=== PATIENT | male | born 1955 | race Caucasian/White ===

== ENCOUNTER 2019-01-13 10:16 | Outpatient (CLI) | payer BC ==
--- NOTE | 2019-01-13 11:09 | RAD ---
RADIOGRAPH LUMBAR SPINE 2 VIEWS: DATE: 01/13/19 HISTORY: 63-year-old male with acute traumatic low back pain after fall several days ago. COMPARISON: None. FINDINGS: There are five lumbar-type vertebrae, but L5 is transitional, with left dysplastic L5 transverse proc ess that appears to pseudoarticulate with the S1 ala. Moderate disc space narrowing with moderate end plate marginal osteophytes at L3-4, L4-5, and L5-S1. No major spondylolisthesis. Vertebral body heig hts are maintained. Mild lateral curvature. High grade facet DJD on the right side at L4-5. IMPRESSION: 1. No acute compression fracture. 2. Lumbar spondylosis. 3. Lumbosacral transitional vertebra Castellvi's classification type IIa. JN [] POS: [facility]
--- NOTE | 2019-01-13 11:16 | RAD ---
EXAM: 3 views of the thoracic spine HISTORY: Follow the course with back pain COMPARISON: None FINDINGS: 3 views of the thoracic spine shows normal height and alignment of the vertebral bodies and intervertebral discs without fracture or subluxation. Mild lower thoracic degenerative changes are seen. IMPRESSION: No evidence of acute thoracic spine abnormality.
== END 2019-01-13 10:17 | disposition home or self-care (01) ==
LOC: SCSRAD 10:16
PROVIDERS: ATTEND Nurse Practitioner Family
DX: M54.6 Pain in thoracic spine (principal); M47.816 Spondylosis without myelopathy or radiculopathy, lumbar region
CPT/HCPCS: 72072; 72100

== ENCOUNTER 2019-11-15 09:26 | Inpatient (IN) | payer BC, OTHER ==
[2019-11-15] MEDS ORDERED: Dexamethasone 10 MG/ML VIAL ONE (09:44)
[2019-11-15] MEDS ORDERED: Iopamidol-370 76% 500 ML 1 ML ONE (09:52)
[2019-11-15 10:05] LABS: #Lymphocytes 0.8 thou/uL (1.20-3.40); #Monocytes 0.4 thou/uL (0.11-0.59); #Neutrophils 4.5 thou/uL (1.40-6.50); %Basophils 0.1 % (0.0-1.0); %Eosinophils 0.5 % (0.0-10.0); %Lymphocytes 13.2 % (21.0-51.0); %Monocytes 7.3 % (0.0-10.0); Hemoglobin 14.1 g/dL (14.0-18.0); Mean Corpuscular HGB CONC 33.1 g/dL (32.0-36.0); Mean Corpuscular Hemoglobin 30.6 pg (27.0-31.0); Mean Corpuscular Volume 92.5 fL (78.0-98.0); Mean Platelet Volume 7.2 fL (7.4-10.4); Platelet Count 213 thou/uL (130-400); RBC Distribution Width 11.4 % (11.5-14.5); Red Blood Cell (RBC) Count 4.59 mill/uL (4.70-6.10); White Blood Cell (WBC) Count 5.7 thou/uL (4.8-10.8)
--- NOTE | 2019-11-15 10:31 | RAD ---
PORTABLE CHEST 1 VIEW: Date: 11/15/2019 Time: 0926 hours HISTORY: Weakness. Chest pain. Positive for COVID. FINDINGS/IMPRESSION: There are no previous exams for comparison. The heart size is borderline. Mild patchy infiltrates are seen in the lower lung burger. No lobar con solidation, pneumothoraces, or large effusions are noted. There are degenerative changes in the spine . POS: [facility]
[2019-11-15 10:33] LABS: ALT (SGPT) 32 U/L (8-55); AST (SGOT) 35 U/L (5-34); Albumin 4.1 g/dL (3.4-4.8); Alkaline Phosphatase 69 U/L (40-110); Anion Gap 18 mmol/L (10-20); BUN (Urea Nitrogen) 18 mg/dL (8.4-25.7); Bilirubin, Total 0.6 mg/dL (0.2-1.2); CK (CPK) 110 U/L (30-200); Calc. Creatinine Clearance 0 mL/min (70-130); Calcium 8.6 mg/dL (7.8-10.44); Carbon Dioxide 20 mmol/L (23-31); Chloride 101 mmol/L (98-107); Estimated GFR-MDRD Greater than 90; Globulin 2.4 g/dL (2.4-3.5); Glucose 106 mg/dL (80-115); Lipase 52 U/L (8-78); Protein, Total 6.5 g/dL (5.8-8.1); Sodium 135 mmol/L (136-145)
[2019-11-15 13:16] LABS: Troponin I Less than 0.010 ng/mL (< 0.028)
--- NOTE | 2019-11-15 13:37 | CT ---
CT ANGIOGRAM THORAX WITH IV CONTRAST AND 3-D RECONSTRUCTIONS CLINICAL INDICATION: Covid positive. Elevated d-dimer. COMPARISON: None FINDINGS: Pulmonary arteries: No filling defects are seen in the central or segmental pulmonary arteries to sug gest a pulmonary embolus. Aorta: Normal in caliber without evidence of an aortic dissection. Lungs: There are scattered peripherally located groundglass densities seen within the upper and lower lobes as well as the right middle lobe with interstitial and patchy parenchymal densities at each lung base. No pleural effusion is seen. Mediastinum: There is a mildly prominent precarinal lymph node present measuring 9 mm in short axis d imension. Calcified subcarinal lymph nodes are identified. Mildly prominent right hilar lymph nodes are seen. These lymph nodes are likely reactive in origin. Thyroid gland: Limited imaged thyroid gland has a normal CT appearance Osseous structures: There are prominent endplate degenerative changes at the C5-6 level. There is rig ht glenohumeral osteoarthropathy. Chest wall: No abnormality visualized. Upper abdomen: Gallbladder is incompletely imaged but does appear mildly distended. Remainder of the visualized upper abdomen demonstrates a normal CT appearance for arterial phase of imaging. IMPRESSION: 1. Scattered groundglass opacities as well as interstitial and patchy parenchymal densities at each l donnell base. These findings can be seen with viral pneumonitis such as Covid 19. 2. Probable reactive mediastinal and right hilar lymphadenopathy. 3. No CT evidence of a pulmonary embolus involving the central or segmental pulmonary arteries. 4. Incomplete imaging of the gallbladder, but the gallbladder is mildly distended.
[2019-11-15] MEDS ORDERED: cefTRIAXone\\ROCEPHIN 2 GM VIAL ONE (14:01)
[2019-11-15] MEDS ORDERED: Aspirin Chewable 81 MG TAB ONE (14:01)
[2019-11-15] MEDS ORDERED: Azithromycin 500 MG VIAL ONE (14:01)
[2019-11-15] MEDS ORDERED: Enoxaparin Sodium 100 MG/ML SYRINGE ONE (14:06)
[2019-11-15] MEDS ORDERED: Piperacillin/Tazobactam 4.5 GM VIAL ONE (16:18)
[2019-11-15] MEDS ORDERED: Ondansetron ODT 4 MG TAB SL PRN (17:33)
[2019-11-15] MEDS ORDERED: Ondansetron PF 4 MG/2 ML Vial IVP PRN (17:33)
[2019-11-15] MEDS ORDERED: hydrALAZINE 20 MG/ML VIAL SLOW IVP PRN (17:36)
[2019-11-15 19:23] VITALS: BMI 25.9
[2019-11-15] MEDS: Famotidine 20 MG TAB PO SCH (20:28)
--- NOTE | 2019-11-15 20:28 | HP ---
PRIMARY CARE PHYSICIAN: Brett Morales MD CHIEF COMPLAINT: Cough and shortness of breath. HISTORY OF PRESENT ILLNESS: Mr. Barrios is a very pleasant 64-year-old gentleman, who has a history of hypertension and hyperlipidemia. He was in his usual state of health until he says before last when he started having symptoms of scratchy throat and some nasal congestion and a cough off and on. He says that the symptoms are kind of off and on and he really did not think much of it. Then, on last Friday, the symptoms seem to get worse. He was having some chills and started to feel tired and short of breath when he would walk or do anything. For this reason, he went ahead and got tested at his primary care physician's office for COVID-19. He said he got a call back a few days later, around and was told he was positive. He said he was basically having similar symptoms off and on. At times, he thought it had actually gone away, but then the symptoms would come back and he became more short of breath and having increased cough and for this reason he came to the ER for evaluation. In the ER, he was found to be slightly hypoxic with an O2 saturation around 91% on room air and it went up to 98% with supplemental oxygen and he is being admitted for further evaluation. The patient also admits to a little bit of diarrhea, but otherwise no other complaints such as chest pain. No leg pain or leg swelling and he does say that he takes Enbrel for osteoarthritis, but due to these symptoms he missed his last injection which would have been this week. REVIEW OF SYSTEMS: All systems were reviewed and are negative except for that mentioned in the history of present illness. PAST MEDICAL HISTORY: Significant for hypertension and hyperlipidemia as well as arthritis. PAST SURGICAL HISTORY: No history of any surgeries. ALLERGIES: NO KNOWN DRUG ALLERGIES. SOCIAL HISTORY: He is a nonsmoker and nondrinker. He is . He has one child of his own and 3 other step children and his is his surrogate decision maker and he is a full code. FAMILY HISTORY: No history of any known heritable diseases. CURRENT MEDICATIONS: He is on a blood pressure medicine as well as cholesterol medicine and then the Enbrel, but he does not know the names. PHYSICAL EXAMINATION: GENERAL: He is alert and oriented. He appears to be in no acute distress. He is well developed and well nourished. VITAL SIGNS: Blood pressure was 145/75, heart rate 76, respiratory rate of 20, and temperature was 98.5. HEENT: Pupils are equal, round, and reactive. Extraocular muscles are intact. His sclerae are anicteric. NECK: There is no adenopathy. No bruits. LUNGS: He has bilateral rales, but no wheezing and these are fine crackles. CARDIOVASCULAR: He has a normal S1 and S2. There is no S3 or S4. No murmurs, clicks, or rubs. ABDOMEN: Soft, nontender, and nondistended. Positive for bowel sounds. No rebound. No guarding. No organomegaly. EXTREMITIES: There is no clubbing or cyanosis. No edema. No calf tenderness. No joint effusions. NEUROLOGIC: Exam is grossly nonfocal. SKIN AND INTEGUMENT: No skin changes. No rash. LABORATORY DATA: White blood cell count is 5.7, hemoglobin 14.1, hematocrit is 42.5, and platelet count is 213. D-dimer was 0.63. Sodium 135, potassium 4.0, chloride is 101, CO2 is 20, BUN of 18, creatinine 0.77, and glucose is 105. Troponin is less than 0.010. He had a CT angiogram of the chest, which was negative for PE, but did show some bilateral ground-glass opacities. ASSESSMENT: This is a pleasant 64-year-old gentleman, who is being admitted for pneumonia due to COVID-19 infection. He also has some degree of hypoxia. Therefore, he has an acute respiratory failure with hypoxemia due to COVID-19 pneumonia. He will be admitted and started on IV Decadron. We will place him on Rocephin and azithromycin to help prevent superimposed infection and also trend his inflammatory markers and consider full-dose anticoagulation given the thrombotic nature of this illness. He is beyond 10 days out of his illness and therefore is not considered a remdesivir candidate by our protocol. 1. Hypertension. We will need to reconcile and restart his blood pressure medications. We will also have p.r.n. medicines available. 2. He will also be placed on gastrointestinal prophylaxis. Job ID: [id number]
[2019-11-15] MEDS: Acetaminophen 325 MG TAB PO PRN (20:36)
[2019-11-15] MEDS ORDERED: Dexamethasone 4 mg/ml Vial SLOW IVP SCH (21:00)
[2019-11-15] MEDS ORDERED: Enoxaparin Sodium 80 MG/0.8 ML SYRINGE SC SCH (23:30)
[2019-11-16 04:54] LABS: #Lymphocytes 0.7 thou/uL (1.20-3.40); #Monocytes 0.3 thou/uL (0.11-0.59); #Neutrophils 5.1 thou/uL (1.40-6.50); %Lymphocytes 10.9 % (21.0-51.0); %Neutrophils 84.1 % (42.0-75.0); Hemoglobin 13.4 g/dL (14.0-18.0); Mean Corpuscular HGB CONC 34.6 g/dL (32.0-36.0); Mean Corpuscular Hemoglobin 31.9 pg (27.0-31.0); Mean Corpuscular Volume 92.3 fL (78.0-98.0); Mean Platelet Volume 7.4 fL (7.4-10.4); Platelet Count 249 thou/uL (130-400); RBC Distribution Width 11.1 % (11.5-14.5); Red Blood Cell (RBC) Count 4.21 mill/uL (4.70-6.10); White Blood Cell (WBC) Count 6.1 thou/uL (4.8-10.8)
[2019-11-16 05:10] LABS: Anion Gap 14 mmol/L (10-20); BUN (Urea Nitrogen) 18 mg/dL (8.4-25.7); CRP (Inflammatory) 5.33 mg/dL (= or < 0.5); Calc. Creatinine Clearance 121 mL/min (70-130); Calcium 8.7 mg/dL (7.8-10.44); Carbon Dioxide 24 mmol/L (23-31); Chloride 102 mmol/L (98-107); Estimated GFR-MDRD Greater than 90; Glucose 163 mg/dL (80-115); Sodium 136 mmol/L (136-145)
[2019-11-16] MEDS: Acetaminophen 325 MG TAB PO PRN ×2 (06:30→12:09)
[2019-11-16] MEDS: Dexamethasone 6 MG in Sodium Chloride 0.9% 50 ML IVPB SCH (09:06)
[2019-11-16] MEDS: Ascorbic Acid 500 mg Chewable Tablet PO SCH (09:06)
[2019-11-16] MEDS: Enoxaparin Sodium 80 MG/0.8 ML SYRINGE SC SCH ×2 (09:06→20:11)
[2019-11-16] MEDS: Famotidine 20 MG TAB PO SCH ×2 (09:07→20:11)
[2019-11-16] MEDS: Folic Acid/Vit B Comp W-C PO SCH (09:07)
[2019-11-16 09:37] LABS: Hemoglobin 13.7 g/dL (14.0-18.0); Platelet Count 266 thou/uL (130-400)
[2019-11-16 09:54] LABS: Calc. Creatinine Clearance 122 mL/min (70-130); Estimated GFR-MDRD Greater than 90
[2019-11-16] MEDS ORDERED: Azithromycin 500 MG in Sodium Chloride 0.9% 250 ML 250 ML IVPB SCH (14:00)
[2019-11-16] MEDS: traMADol HCl 50 MG TAB PO PRN ×2 (14:16→20:10)
[2019-11-16] MEDS: cefTRIAXone\\ROCEPHIN 1 GM in Sodium Chloride 0.9% 100 ML IVPB SCH (14:16)
--- NOTE | 2019-11-16 16:28 | PDOC.HOSPP ---
- Subjective Encounter Date: 11/16/19 Encounter Time: 16:26 Subjective: Mr. Barrios was seen today in follow-up of COVID infection with respiratory failure. He says he feels better today. No new complaints. - Objective Vital Signs & Weight: Vital Signs (12 hours) Temp Pulse Resp BP Pulse Ox 11/16/19 15:16 99.0 F 79 18 135/71 94 L 11/16/19 12:12 98.8 F 74 20 145/75 H 91 L 11/16/19 09:05 98.9 F 75 20 139/60 92 L 11/16/19 08:20 92 L Weight Admit Weight 191 lb 8 oz Weight 191 lb 8 oz I&O: 11/15/19 11/16/19 11/17/19 06:59 06:59 06:59 Intake Total 350 Balance 350 Result Diagrams: 11/16/19 09:21 11/16/19 09:21 Hospitalist ROS - Medication Medications: Active Medications Generic Name Dose Route Start Last Admin Trade Name Freq PRN Reason Stop Dose Admin Acetaminophen 650 mg 11/15/19 17:36 11/16/19 12:09 Tylenol PO 650 mg Q4H PRN Administration Headache/Fever/Mild Pain (1-3) Ascorbic Acid 1,000 mg 11/16/19 09:00 11/16/19 09:06 Vitamin C PO 1,000 mg DAILY KATIE Administration Enoxaparin Sodium 80 mg 11/16/19 09:00 11/16/19 09:06 Lovenox SC 80 mg 0900,2100 KATIE Administration Famotidine 20 mg 11/15/19 21:00 11/16/19 09:07 Pepcid PO 20 mg BID KATIE Administration Ceftriaxone Sodium 1 gm/ 100 mls @ 200 mls/hr 11/16/19 15:00 11/16/19 14:16 Sodium Chloride IVPB 100 mls 1500 KATIE Administration Dexamethasone 6 mg/ Sodium 51.5 mls @ 100 mls/hr 11/16/19 09:00 11/16/19 09: 06 Chloride IVPB 51.5 mls DAILY KATIE Administration Tramadol HCl 50 mg 11/16/19 14:01 11/16/19 14:16 Ultram PO 50 mg Q6H PRN Administration Moderate to Severe Pain (6-10) Vitamin B Complex/Vit C/Folic Acid 1 tab 11/16/19 09:00 07/07/20 09:07 Nephro-China Tablet PO 1 tab DAILY KATIE Administration - Exam Eye: PERRL, anicteric sclera Heart: RRR, no murmur, no gallops, no rubs, normal peripheral pulses Respiratory: no wheezes, no ronchi, rales Gastrointestinal: soft, non-tender, non-distended, normal bowel sounds, no palpable masses Extremities: no cyanosis, no edema Hosp A/P (1) Acute respiratory failure due to COVID-19 Code(s): U07.1 - COVID-19; J96.00 - ACUTE RESPIRATORY FAILURE, UNSP W HYPOXIA OR HYPERCAPNIA Status: Acute (2) Hypertension Code(s): I10 - ESSENTIAL (PRIMARY) HYPERTENSION Status: Acute (3) Hyperlipidemia Code(s): E78.5 - HYPERLIPIDEMIA, UNSPECIFIED Status: Chronic - Plan * Acute respiratory failure due to COVID infection- he is not requiring any oxygen supplementation * Continue Decadron * Continue to trend inflammatory markers * Maybe home in a day or two if he remains stable * HTN- blood pressure is stable
[2019-11-16] MEDS ORDERED: Benzonatate 100 MG CAP PO PRN (18:39)
[2019-11-16] MEDS ORDERED: Loperamide HCl 2 MG CAP PO PRN (18:39)
[2019-11-17] MEDS: Acetaminophen 325 MG TAB PO PRN ×2 (00:52→12:48)
[2019-11-17] MEDS: Dexamethasone 6 MG in Sodium Chloride 0.9% 50 ML IVPB SCH (08:53)
[2019-11-17] MEDS: Folic Acid/Vit B Comp W-C PO SCH (08:54)
[2019-11-17] MEDS: Famotidine 20 MG TAB PO SCH (08:54)
[2019-11-17] MEDS: Ascorbic Acid 500 mg Chewable Tablet PO SCH (08:54)
[2019-11-17] MEDS: Enoxaparin Sodium 80 MG/0.8 ML SYRINGE SC SCH (08:54)
[2019-11-17] MEDS: traMADol HCl 50 MG TAB PO PRN (08:55)
[2019-11-17] MEDS ORDERED: Azithromycin 500 MG in Sodium Chloride 0.9% 250 ML 250 ML IVPB SCH (09:00)
[2019-11-17] MEDS: Benzonatate 100 MG CAP PO PRN ×2 (09:21→15:01)
[2019-11-17] MEDS: cefTRIAXone\\ROCEPHIN 1 GM in Sodium Chloride 0.9% 100 ML IVPB SCH (14:57)
--- NOTE | 2019-11-17 16:26 | PDOC.HOSPP ---
- Subjective Encounter Date: 11/17/19 Encounter Time: 16:24 Subjective: Mr. Barrios was seen today in follow-up of COVID infection. He says he feels fine. No complaints. - Objective Vital Signs & Weight: Vital Signs (12 hours) Temp Pulse Resp BP Pulse Ox 11/17/19 15:19 98.1 F 11/17/19 13:00 99.1 F 79 20 132/75 11/17/19 09:07 99.0 F 69 18 117/73 94 L 11/17/19 05:00 98.6 F 62 20 119/63 94 L Weight Admit Weight 191 lb 8 oz Weight 191 lb 8 oz I&O: 11/16/19 11/17/19 11/18/19 06:59 06:59 06:59 Intake Total 350 1310 Balance 350 1310 Result Diagrams: 11/16/19 09:21 11/16/19 09:21 Hospitalist ROS - Medication Medications: Active Medications Generic Name Dose Route Start Last Admin Trade Name Freq PRN Reason Stop Dose Admin Acetaminophen 650 mg 11/15/19 17:36 11/17/19 12:48 Tylenol PO 650 mg Q4H PRN Administration Headache/Fever/Mild Pain (1-3) Ascorbic Acid 1,000 mg 11/16/19 09:00 11/17/19 08:54 Vitamin C PO 1,000 mg DAILY KATIE Administration Benzonatate 100 mg 11/17/19 08:26 11/17/19 15:01 Tessalon PO 100 mg TIDPRN PRN Administration Cough Enoxaparin Sodium 80 mg 11/16/19 09:00 11/17/19 08:54 Lovenox SC 80 mg 0900,2100 KATIE Administration Famotidine 20 mg 11/15/19 21:00 11/17/19 08:54 Pepcid PO 20 mg BID KATIE Administration Ceftriaxone Sodium 1 gm/ 100 mls @ 200 mls/hr 11/16/19 15:00 11/17/19 14:57 Sodium Chloride IVPB 100 mls 1500 KATIE Administration Dexamethasone 6 mg/ Sodium 51.5 mls @ 100 mls/hr 11/16/19 09:00 11/17/19 08: 53 Chloride IVPB 51.5 mls DAILY KATIE Administration Azithromycin 500 mg/ Sodium 250 mls @ 250 mls/hr 11/17/19 09:00 11/17/19 08: 53 Chloride IVPB 250 mls 0900 KATIE Administration Loperamide HCl 2 mg 11/16/19 18:39 11/16/19 20:12 Imodium PO 2 mg DAILYPRN PRN Administration Diarrhea/Loose Stools Tramadol HCl 50 mg 11/16/19 14:01 11/17/19 08:55 Ultram PO 50 mg Q6H PRN Administration Moderate to Severe Pain (6-10) Vitamin B Complex/Vit C/Folic Acid 1 tab 11/16/19 09:00 11/17/19 08:54 Nephro-[place] Tablet PO 1 tab DAILY KATIE Administration - Exam Eye: PERRL, anicteric sclera Heart: RRR, no murmur, no gallops, no rubs, normal peripheral pulses Respiratory: rales (+ rales at the lung bases) Gastrointestinal: soft, non-tender, non-distended, normal bowel sounds, no palpable masses, no hepatomegaly Extremities: no cyanosis, no edema Hosp A/P (1) Acute respiratory failure due to COVID-19 Code(s): U07.1 - COVID-19; J96.00 - ACUTE RESPIRATORY FAILURE, UNSP W HYPOXIA OR HYPERCAPNIA Status: Acute (2) Hypertension Code(s): I10 - ESSENTIAL (PRIMARY) HYPERTENSION Status: Acute (3) Hyperlipidemia Code(s): E78.5 - HYPERLIPIDEMIA, UNSPECIFIED Status: Chronic - Plan * Acute respiratory failure due to COVID infection- he is not requiring any oxygen supplementation * His Inflammatory markers are trending down * Stable for discharge home
[2019-11-17 17:37] VITALS: BP 122/78; TEMP 98.3
--- NOTE | 2019-11-17 19:11 | DIS ---
DATE OF ADMISSION: 11/15/2019 DATE OF DISCHARGE: 11/17/2019 PRIMARY CARE PHYSICIAN: Brett Morales MD DISCHARGE DIAGNOSES: 1. COVID-19 infection. 2. Hypertension. 3. Hyperlipidemia. DISCHARGE MEDICATIONS: 1. Azithromycin 250 mg daily. 2. Vitamin C 1000 mg daily. 3. Enbrel every 7 days. 4. Tessalon Perles 100 mg t.i.d. DIAGNOSTIC STUDIES: Imaging done during the hospital stay, the patient had a CT angiogram of the chest, which showed some ground-glass opacities and some interstitial patchy densities in the lung base. There is no evidence for pulmonary embolism. CODE STATUS: Full code. ALLERGIES: NO KNOWN DRUG ALLERGIES. HOSPITAL COURSE: Mr. Barrios is a pleasant 64-year-old gentleman, who presented to the hospital with complaints of cough and congestion and some shortness of breath. He had known COVID-19 infection. His symptoms had started about a week prior and there was some concern that he was slightly hypoxic on room air with O2 saturations around 91%. He was placed in observation to see which direction he was going to go. Inflammatory markers were trended. Over the course of the next 2 days, he used some oxygen intermittently, but at the time of discharge, he was on room air and saturating in the mid-to-high 90s. His inflammatory markers were beginning to trend down. He was ambulatory without any complaints and therefore he is being discharged home. CDC guidelines for self quarantine were given to the patient and he is to follow up with his primary care physician in approximately 2 weeks. Job ID: [id number]
== END 2019-11-17 17:05 | disposition home or self-care (01) | DRG 177 ==
LOC: ERS 09:26 → OBSVTOIN 15:07 → 2SW 15:07
PROVIDERS: ADMIT Internal Medicine; ATTEND Internal Medicine
PROC: 8E0ZXY6 Isolation (ICD-10-PCS; principal; 2019-11-15)
DX: U07.1 COVID-19 (principal); J96.01 Acute respiratory failure with hypoxia; J12.89 Other viral pneumonia; I10 Essential (primary) hypertension; E78.5 Hyperlipidemia, unspecified
CPT/HCPCS: 36415; 71045; 71275; 80048; 80053; 82550; 82728; 83690; 83880; 84484; 85025; 85379; 86140; 93005; 96365; 96372; 96375; J0456; J0696; J1100; J1650; J2543; J3490; J7050; Q0162; Q9967

== ENCOUNTER 2019-12-08 06:18 | Observation (INO) | payer BC, OTHER ==
[2019-12-08] MEDS ORDERED: Morphine 4 MG/ML VIAL ONE (06:42)
[2019-12-08] MEDS ORDERED: Ondansetron PF 4 MG/2 ML Vial ONE (06:42)
[2019-12-08 06:56] LABS: Hemoglobin 14.6 g/dL (14.0-18.0); Mean Corpuscular HGB CONC 34.1 g/dL (32.0-36.0); Mean Corpuscular Hemoglobin 31.9 pg (27.0-31.0); Mean Corpuscular Volume 93.6 fL (78.0-98.0); Platelet Count 234 thou/uL (130-400); RBC Distribution Width 12.2 % (11.5-14.5); Red Blood Cell (RBC) Count 4.56 mill/uL (4.70-6.10); White Blood Cell (WBC) Count 5.7 thou/uL (4.8-10.8)
[2019-12-08 07:10] LABS: ALT (SGPT) 29 U/L (8-55); AST (SGOT) 26 U/L (5-34); Albumin 4.7 g/dL (3.4-4.8); Alkaline Phosphatase 70 U/L (40-110); Anion Gap 12 mmol/L (10-20); BUN (Urea Nitrogen) 17 mg/dL (8.4-25.7); Bilirubin, Total 0.8 mg/dL (0.2-1.2); Calc. Creatinine Clearance 0 mL/min (70-130); Calcium 10.3 mg/dL (7.8-10.44); Carbon Dioxide 26 mmol/L (23-31); Chloride 104 mmol/L (98-107); Estimated GFR-MDRD Greater than 90; Globulin 2.8 g/dL (2.4-3.5); Glucose 116 mg/dL (80-115); Potassium 4.1 mmol/L (3.5-5.1); Protein, Total 7.5 g/dL (5.8-8.1); Sodium 138 mmol/L (136-145)
[2019-12-08 07:21] LABS: Band 1 % (5-11); Eosinophils 1 % (0-10); Lymphocytes 52 % (21-51); MDiff Complete? YES; Monocytes 13 % (0-10); Neutrophil 33 % (42-75); Platelet Morphology Comment Appears Adequate; RBC Morphology Normal
--- NOTE | 2019-12-08 07:34 | RAD ---
XR Chest 1 View Portable History: COVID 19 pneumonia Comparison: Radiograph November 15, 2019 Findings: Relative to prior exam there is been mild improved aeration of the lung bases. No new confl uent airspace consolidation, pneumothorax or effusion. Cardiac silhouette and mediastinal contours are similar. No acute osseous abnormality. Impression: No acute intrathoracic abnormality.
[2019-12-08] MEDS ORDERED: Aspirin Chewable 81 MG TAB ONE (08:06)
[2019-12-08] MEDS ORDERED: Nitroglycerin 0.4 MG TAB (25 Tab Bottle) PO PRN (10:34)
[2019-12-08] MEDS ORDERED: Iopamidol 370 76% 100 ML VIAL ONE (10:36)
[2019-12-08] MEDS ORDERED: HYDROcodone/Acetaminophen 5/325 mg Tablet PO PRN ×2 (10:37)
[2019-12-08] MEDS ORDERED: Senokot S 8.6-50 MG TAB PO PRN (10:37)
[2019-12-08] MEDS ORDERED: Acetaminophen 650 MG Suppository PR PRN (10:37)
[2019-12-08] MEDS ORDERED: Acetaminophen 325 MG TAB PO PRN (10:37)
[2019-12-08] MEDS ORDERED: Calcium Carbonate 500 MG ChewTAB PO PRN (10:37)
[2019-12-08] MEDS ORDERED: Morphine 2 MG/ML VIAL SLOW IVP PRN (10:37)
--- NOTE | 2019-12-08 11:37 | CT ---
EXAM: CTA of the chest and abdomen HISTORY: Left chest pain that started this morning. Covid positive COMPARISON: None TECHNIQUE: Multiple contiguous axial images were obtained a CTA of the chest and abdomen with contras t per aortic dissection protocol. Sagittal and coronal 3-D MIP reformats were performed. FINDINGS: HEART: Normal in size without focal cardiac abnormality. PULMONARY ARTERIES: Normal in caliber without filling defects to suggest pulmonary emboli. MEDIASTINUM: No hilar or mediastinal lymphadenopathy. LUNGS: Very subtle peripheral opacities are seen in the lungs which could represent an atypical infil trate. Atelectasis is seen in the lung bases. PLEURAL SPACE: No pleural effusion or pneumothorax. CHEST AND ABDOMINAL WALL SOFT TISSUES: Unremarkable LIVER: Unremarkable. GALLBLADDER: Unremarkable. KIDNEYS: Unremarkable. SPLEEN: Unremarkable. PANCREAS: Unremarkable. BOWEL: Unremarkable. RETROPERITONEUM: No lymphadenopathy BONES: Degenerative changes in the spine. ASCENDING THORACIC AORTA: Normal caliber without evidence of dissection or aneurysmal dilatation. DESCENDING THORACIC AORTA: Normal caliber without evidence of dissection or aneurysmal dilatation. ABDOMINAL AORTA: Normal caliber without evidence of dissection or aneurysmal dilatation. CELIAC TRUNK: Patent SMA: Patent SWEETIE: Patent RENAL ARTERIES: Bilateral single renal arteries without significant atherosclerotic disease IMPRESSION: 1. No evidence of thoracic or abdominal aortic aneurysm or dissection 2. Questionable subtle peripheral infiltrates could be secondary to Covid pneumonia.
--- NOTE | 2019-12-08 11:43 | HP ---
PRIMARY CARE PHYSICIAN: Dr. Brett Morales. CHIEF COMPLAINT: Chest pain. HISTORY OF PRESENT ILLNESS: The patient is a 64-year-old male with past medical history of rheumatoid arthritis, who presents to the ER for the above complaint. 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 As he sat down after drinking his coffee, he developed a sudden onset of acute chest pain. He reports the chest pain was located under his left shoulder blade. He reports that it was nonradiating. He describes it as stabbing. It was constant, exacerbated and relieved by nothing. He reports that he has never had this pain before. He denies any recent trauma or falls. He denies any associated heart palpitation, shortness of breath, or lower extremity swelling. No history of DVT or PE. He denies any lightheadedness, diaphoresis, nausea, vomiting, or diarrhea. For these reasons, the patient came to the ER. In the ER, the patient's vital signs were stable with normal blood pressure, normal pulse, normal heart rate, normal respirations, normal O2 saturation. He was afebrile. EKG was normal sinus rhythm with no ST elevations. Chest x-ray was negative for any acute cardiopulmonary process. His CMP and CBC were unremarkable. His initial troponin was negative. He was recently diagnosed with COVID pneumonia three weeks prior, since he has been back to work, he reports that he has had no symptoms of COVID at all. In the ER, he was given a full-dose aspirin, Zofran, and morphine with improvement of symptoms. Currently, he is lying in bed upon examination with no symptoms and in no acute distress. PAST MEDICAL HISTORY: Arthritis, rheumatoid. PAST SURGICAL HISTORY: None. SOCIAL HISTORY: The patient lives at home with his family. No smoking, illicit drug use, or alcohol intake. He ambulates without any assistive devices. FAMILY HISTORY: Noncontributory to this case. ALLERGIES: NO KNOWN DRUG ALLERGIES. MEDICATIONS: Enbrel 1 mL subcu q.7 days. REVIEW OF SYSTEMS: All review of systems are negative unless otherwise stated in the HPI. PHYSICAL EXAMINATION: VITAL SIGNS: Temperature 97.6, blood pressure 121/73, pulse 60, respirations 16 , O2 saturation 97% on room air, 0/10 pain. CONSTITUTIONAL: He is alert and oriented to person, place, and time, comfortable in appearance. Nontoxic. HEAD: Atraumatic and normocephalic. EYES: PERRLA. Extraocular muscles intact. Sclerae are nonicteric. NECK: Full range of motion. No cervical spinal tenderness. No JVD. No cervical adenopathy. ENT: TMs intact bilaterally. Oropharynx is clear. Uvula midline. Moist mucous membranes. No oral lesions. RESPIRATORY/CHEST: Respirations even and nonlabored. Clear to auscultation. No rhonchi, wheezes, or rales. CARDIOVASCULAR: S1 and S2 appreciated. Regular rate and rhythm. No murmurs, rubs, or gallops. ABDOMEN: Soft, nontender, nondistended. Active bowel sounds. No guarding. No rigidity. No rebound. Negative Rovsing sign. Negative Schwab sign. BACK: Full range of motion. No central spinous tenderness. No CVA tenderness. EXTREMITIES: Upper extremities; full range of motion, normal strength, sensation intact. Palpable radial pulses. Lower extremities; full range of motion, normal strength, sensation intact. Palpable pedal pulses, no swelling. NEUROLOGIC: He is alert and oriented to person, place, and time. Moves all extremities well. No focal motor deficits. Normal gait. PSYCH: Normal affect. A and O x3. Denies any suicidal or homicidal ideation. DIAGNOSTIC STUDIES AND LABORATORY DATA: EKG, normal sinus rhythm, no ST elevations. Chest x-ray negative for any acute cardiopulmonary process. Sodium 138, potassium 4.1, chloride 104, carbon dioxide 26, BUN 17, creatinine 0.74, glucose 116, calcium 10.3, total bilirubin 0.8, AST 26, ALT 29, alkaline phosphatase 70. Initial troponin 0.012. WBCs 5.7, hemoglobin 14.6, hematocrit 42.7, and platelets 234. D-dimer was 0.40. IMPRESSION AND PLAN: 1. Chest pain, rule out acute coronary syndrome. The patient presents with a HEART score of 2, low risk and Wells score of 0. D-dimer was 0.40. We will continue to trend troponins. Check BNP, magnesium, TSH, and UA. Patient had recent FLP. Ordered nuclear medicine cardiac stress test. Consult Cardiology. Given the patient's acute onset of symptoms, we will order a CT aortic dissection. 2. COVID-19, history of. The patient was positive for COVID pneumonia three weeks prior. He reports that all of his COVID symptoms have resolved. He has returned to work. Per hospital protocol, do not require droplet precautions or repeat testing, given asymptomatic for > 20 days. 3. Arthritis, rheumatoid. The patient is on Enbrel. The patient reports chronic swelling and pain to bilateral hands. We will continue his Enbrel once reconciled by nursing. 4. SCDs for deep venous thrombosis prophylaxis. Pepcid for gastrointestinal prophylaxis. The patient is a full code. 5. Discussed the case with Dr. Phillips. Job ID: [id number] [facility]
[2019-12-08 11:48] VITALS: BMI 25.5
[2019-12-08 13:40] LABS: Troponin I 0.014 ng/mL (< 0.028)
[2019-12-08 13:56] LABS: Troponin I 0.017 ng/mL (< 0.028)
--- NOTE | 2019-12-08 15:12 | CON ---
DATE OF CONSULTATION: HISTORY OF PRESENT ILLNESS: The patient is a 64-year-old gentleman, who presents for evaluation of left shoulder discomfort. The patient has no previous cardiac history, was seen for evaluation of dyspnea in 2018. He underwent an echocardiogram, which revealed normal left ventricular systolic function, estimated ejection fraction 55% to 60% with diastolic dysfunction. He underwent a Cardiolite stress test, where he was found to have possible inferior wall defect. The patient has been on medical therapy. He was in his usual state of health when he developed pain under his left shoulder blade. The discomfort was severe. It was not worsened with movement. The patient states it lasted for several hours. He eventually came to the emergency room and he received morphine, at this time the patient denies having any further discomfort. The patient's cardiac risk factors include hypertension and dyslipidemia. PAST MEDICAL HISTORY: 1. Hypertension. 2. Dyslipidemia. 3. Arthritis. 4. Sleep apnea. PAST SURGICAL HISTORY: None. FAMILY HISTORY: No strong family history of heart disease. ALLERGIES: NO KNOWN DRUG ALLERGIES. MEDICATIONS: 1. Lipitor 40 daily. 2. Lisinopril and HCTZ 10/12.5 daily. 3. Tramadol p.r.n. 4. Enbrel subcu weekly. REVIEW OF SYSTEMS: Ten-point system otherwise unremarkable. PHYSICAL EXAMINATION: GENERAL: A well-developed gentleman, in no acute distress. VITAL SIGNS: Blood pressure 121/73. NECK: No jugular venous distention. LUNGS: Clear to auscultation. HEART: Regular rate and rhythm. Normal S1 and S2 with no murmurs. ABDOMEN: Nondistended. EXTREMITIES: Showed no edema. VASCULAR: Radial pulses are 2+. LABORATORY DATA: Sodium was 138, potassium 4.1, chloride 104, bicarbonate 26, BUN 17, creatinine 0.74, glucose 116. Troponin 0.014. BNP less than 10. White blood cell count 5.7, hemoglobin 14.6, hematocrit 42.7, platelets are 234. EKG revealed normal sinus rhythm, normal ECG. IMPRESSION: 1. Shoulder discomfort. 2. Hypertension. 3. Chronic obstructive pulmonary disease. 4. Dyslipidemia. 5. History of abnormal stress test. This gentleman presents with pain under his left shoulder, which is atypical. The patient recently had COVID. His EKG is unremarkable. Cardiac enzymes revealed no evidence of myocardial infarction. The patient will undergo repeat stress test to see if there is evidence of significant ischemia. We will follow this patient with you through his hospitalization. Job ID: [id number] MTDD
--- NOTE | 2019-12-08 20:00 | PDOC.EVN ---
Event Note - Event Note Event Note: Chart reviewed. Pt seen. Discussed with MANAGER CLINICAL APPLICATIONS Mr. Mark. 64 yo man, diagnosed with COVID on November 09, now without respiratory symptoms presenting with chest pain. D-dimer is negative. Plan for stress test. cardiology service has been consulted. Findings and plan of care as documented by MANAGER CLINICAL APPLICATIONS.
[2019-12-08 20:30] LABS: Bacteria/HPF None Seen HPF (None Seen); Bilirubin Negative (Negative); Blood, Urine Negative (Negative); Clarity Clear (Clear); Glucose, Urine (Dipstick) Normal (Negative); Ketone, Urine Negative (Negative); Leukocyte Negative Leu/uL (Negative); Nitrite Negative (Negative); Protein, Urine (Dipstick) Negative (Neg-Trace); RBC/HPF 0-3 HPF (0-3); Specific Gravity, Urine 1.042 (1.002-1.036); Squamous Epithelial None Seen HPF (0-3); WBC/HPF 0-3 HPF (0-3); pH, Urine 7.5 (5.0-9.0)
[2019-12-08] MEDS: Famotidine 20 MG TAB PO SCH (21:30)
[2019-12-08] MEDS: Famotidine/PF 20 mg/2ml Vial SLOW IVP SCH (21:30)
[2019-12-09 04:39] LABS: #Eosinphils 0.3 thou/uL (0.0-0.7); #Lymphocytes 1.1 thou/uL (1.20-3.40); #Monocytes 0.5 thou/uL (0.11-0.59); #Neutrophils 2.9 thou/uL (1.40-6.50); %Basophils 0.5 % (0.0-1.0); %Eosinophils 6.4 % (0.0-10.0); %Lymphocytes 22.8 % (21.0-51.0); %Monocytes 9.8 % (0.0-10.0); %Neutrophils 60.6 % (42.0-75.0); Hemoglobin 13.7 g/dL (14.0-18.0); Mean Corpuscular HGB CONC 33.1 g/dL (32.0-36.0); Mean Corpuscular Hemoglobin 30.8 pg (27.0-31.0); Mean Corpuscular Volume 92.9 fL (78.0-98.0); Platelet Count 206 thou/uL (130-400); RBC Distribution Width 12.2 % (11.5-14.5); Red Blood Cell (RBC) Count 4.45 mill/uL (4.70-6.10); White Blood Cell (WBC) Count 4.9 thou/uL (4.8-10.8)
[2019-12-09 05:05] LABS: Anion Gap 12 mmol/L (10-20); BUN (Urea Nitrogen) 11 mg/dL (8.4-25.7); Calc. Creatinine Clearance 128 mL/min (70-130); Calcium 9.2 mg/dL (7.8-10.44); Carbon Dioxide 24 mmol/L (23-31); Chloride 105 mmol/L (98-107); Estimated GFR-MDRD Greater than 90; Glucose 108 mg/dL (80-115); Potassium 3.9 mmol/L (3.5-5.1); Sodium 137 mmol/L (136-145)
[2019-12-09] MEDS ORDERED: Aspirin 81 mg Enteric Coated Tablet PO SCH (09:00)
[2019-12-09] MEDS ORDERED: Aspirin 325 mg Enteric Coated Tablet PO SCH (09:00)
[2019-12-09] MEDS: Famotidine 20 MG TAB PO SCH (09:15)
[2019-12-09] MEDS: Famotidine/PF 20 mg/2ml Vial SLOW IVP SCH (09:16)
--- NOTE | 2019-12-09 15:32 | NM ---
NUCLEAR MEDICINE CARDIAC MYOCARDIAL PERFUSION SPECT EJECTION FRACTION STUDY WALL MOTION CINE: DATE: 12/09/2019 HISTORY: 64 year old hypertensive male with dyslipidemia presents with chest pain TECHNIQUE: Number of days: 1 Rest study: Technetium 99m-sestamibi (Cardiolite) dose: 9.6 mCi Exercise stress: Treadmill Stress study: Technetium 99m-sestamibi (Cardiolite) dose: 32.1 mCi FINDINGS: CARDIAC (MYOCARDIAL PERFUSION) SPECT Distribution of sestamibi is homogeneous throughout the left ventricle, with no fixed or reversible m yocardial perfusion defects. EJECTION FRACTION STUDY Left ventricular EF = 64 % WALL MOTION CINE The left ventricular wall motion is normal. There is normal systolic wall thickening. IMPRESSION: Normal.
[2019-12-09 16:20] VITALS: BP 157/82; TEMP 98.7
--- NOTE | 2019-12-10 04:17 | DIS ---
DATE OF ADMISSION: 12/08/2019 DATE OF DISCHARGE: 12/09/2019 PRIMARY CARE PROVIDER: Dr. Brett Morales. DISCHARGE DIAGNOSES: 1. Chest pain. 2. Chest pain, most likely secondary to musculoskeletal etiology. CONDITION OF PATIENT ON THE DAY OF DISCHARGE: Stable. I assessed Mr. Barrios on the day of discharge. He denies any chest pain or shortness of breath. Vital signs are stable. S1 and S2 are heard, regular. Lungs are clear to auscultation bilaterally. DISCHARGE MEDICATIONS: No change was made to his preadmission home medications. HOSPITAL COURSE: Mr. Barrios is a pleasant 64-year-old gentleman, who was admitted to [facility] on December 08, 2019, for chest pain. Please refer to Mr. Mark's history and physical note dated December 08, 2019, for further details. CT dissection protocol did not show any evidence of thoracic or abdominal aortic aneurysm or dissection. He had questionable subtle peripheral infiltrates, could be secondary to COVID pneumonia. Pulmonary embolism was ruled out with a negative D-dimer. He also had a nuclear stress test, which was normal. Left ventricular ejection fraction was 64%. He was also seen by Cardiology Service, Dr. Ricks during this hospitalization. On the day of discharge, he has white count 4900, hemoglobin 13.7, and platelet count 206,000. Normal chem 7. TSH was normal during this hospitalization. Many thanks for allowing me to participate in your patient's care. Please feel free to contact me with any questions or concerns. Post acute care followup: With primary care provider in 3 days. DIET: Heart healthy. ACTIVITY: No restrictions. DISCHARGE DESTINATION: Home. Job ID: [id number]
== END 2019-12-09 16:42 | disposition home or self-care (01) ==
LOC: ERS 06:18 → 2NO 10:07
PROVIDERS: ADMIT Internal Medicine; ATTEND Internal Medicine
DX: R07.89 Other chest pain (principal); M06.9 Rheumatoid arthritis, unspecified; J44.9 Chronic obstructive pulmonary disease, unspecified; I10 Essential (primary) hypertension; E78.5 Hyperlipidemia, unspecified; G47.30 Sleep apnea, unspecified; Z79.899 Other long term (current) drug therapy; Z86.19 Personal history of other infectious and parasitic diseases
CPT/HCPCS: 36415; 71045; 71275; 72191; 74175; 78452; 80048; 80053; 81001; 83735; 83880; 84443; 84484; 85025; 85379; 93005; 93017; 96374; 96375; A9500; G0378; J2270; J2405; Q9967; S0028

== ENCOUNTER 2022-02-07 17:30 | Outpatient (CLI) | payer MEDICARE, BC | END 2022-02-07 17:31 | disposition home or self-care (01) | LOC: SLEEPLAB 17:30 | PROVIDERS: ATTEND Family Medicine | DX: G47.33 Obstructive sleep apnea (adult) (pediatric) (principal); R06.83 Snoring; G47.00 Insomnia, unspecified; R09.02 Hypoxemia | CPT/HCPCS: 95800 ==

== ENCOUNTER 2022-03-22 19:00 | Outpatient (CLI) | payer MEDICARE, BC | END 2022-03-22 19:01 | disposition home or self-care (01) | LOC: SLEEPLAB 19:00 | PROVIDERS: ATTEND Family Medicine | DX: G47.33 Obstructive sleep apnea (adult) (pediatric) (principal); R09.02 Hypoxemia; R06.83 Snoring; G47.10 Hypersomnia, unspecified; E66.9 Obesity, unspecified; Z68.27 Body mass index [BMI] 27.0-27.9, adult | CPT/HCPCS: 95811 ==

== ENCOUNTER 2023-01-10 09:16 | Outpatient (CLI) | payer MEDICARE, BC | END 2023-01-10 09:17 | disposition home or self-care (01) | LOC: RAD 09:16 | PROVIDERS: ATTEND Internal Medicine Rheumatology | DX: M54.42 Lumbago with sciatica, left side (principal); M46.1 Sacroiliitis, not elsewhere classified; M47.816 Spondylosis without myelopathy or radiculopathy, lumbar region | CPT/HCPCS: 72100 ==